=== PATIENT | female | born 2000 | race Caucasian/White ===

== ENCOUNTER 2018-05-01 17:04 | Emergency (ER) | payer OTHER ==
[2018-05-01] MEDS: HYDROCODONE/APAP (5/325) TAB PO (19:27)
[2018-05-01] MEDS: DIPHTH/TET/ACEL PERTUSS (ADULT) 0.5 ML VIAL IM* (19:28)
[2018-05-01] MEDS: AMOXICILLIN/CLAV 875 MG TAB PO (19:32)
== END 2018-05-01 20:27 | disposition home or self-care (01) ==
LOC: FTE 17:04
DX: S61.451A Open bite of right hand, initial encounter (principal); W54.0XXA Bitten by dog, initial encounter; Y92.9 Unspecified place or not applicable; Z23 Encounter for immunization
CPT/HCPCS: 73130; 73130-RT; 90471; 90715; 99283-25